=== PATIENT | female | born 1950 | race American Indian/Alaskan Native ===

== ENCOUNTER 2017-02-12 23:52 | Emergency (ER) | payer MEDICARE ==
[2017-02-13 04:34] VITALS: BP 159/91
[2017-02-13] MEDS ORDERED: ROBITUSSIN AC PO ONE (05:36)
[2017-02-13] MEDS ORDERED: MUCINEX ER PO ONE (05:36)
--- NOTE | 2017-02-13 05:50 | Emergency Department Report ---
HPI - General Chief Complaint: Upper Respiratory Infection Time Seen by Provider: 02/13/17 05:20 - HPI HPI: Patient is a 66-year-old female who presents to ED complaining of persistent intermittent cough throughout the day. Patient describes cough as dry nonproductive causing her some discomfort. Patient states she was given Tessalon Perles to take 3 times a day by her primary care on 01/28/2017. Patient states the medication was not working so she stopped taking it. Patient states cough and is not resolved. She denies fevers/chills/assessment vomiting/abdominal pain/chest pain/dizziness /headache/blurry vision. ED Past Medical Hx - Past Medical History Hx Hypertension: Yes Hx Congestive Heart Failure: No Hx Diabetes: Yes Hx Renal Disease: Yes Hx Kidney Stones: Yes Hx Asthma: No Hx COPD: No Additional medical history: Back pain - Surgical History Past Surgical History?: Yes Additional Surgical History: hysterectomy - Social History Smoking Status: Never Smoker Substance Use Type: None - Medications Home Medications: Home Medications Medication Instructions Recorded Confirmed Last Taken Type Amlodipine Besylate/Benazepril 1 cap PO DAILY 01/30/14 05/06/16 05/06/16 History [amLODIPine-Benazepril 10/40 mg] Insulin Glargine,Hum.rec.anlog 60 unit SQ QHS 01/30/14 05/06/16 05/05/16 History [Lantus] Allopurinol [Zyloprim] 100 mg PO QDAY 05/06/16 05/06/16 05/06/16 History AtorvaSTATin [Lipitor] 20 mg PO QPM 05/06/16 05/06/16 05/06/16 History Benzonatate [Tessalon Perles] 100 mg PO Q8HR 05/06/16 05/06/16 05/06/16 History Carvedilol [Coreg] 6.25 mg PO BID 05/06/16 05/06/16 05/06/16 History Cholecalciferol Vit D3 [Vitamin D3] 1,000 unit PO QDAY 05/06/16 05/06/16 History Glimepiride [Amaryl] 2 mg PO QAM 05/06/16 05/06/16 05/06/16 History Hydroxychloroquine [Plaquenil] 200 mg PO QDAY 05/06/16 05/06/1605/06/16 History Leflunomide 10 mg PO DAILY 05/06/16 05/06/16 05/06/16 History Cephalexin [Keflex] 500 mg PO Q6HR #30 capsule 05/07/16 Unknown Rx Cyclobenzaprine HCl [Flexeril 5 MG 5 mg PO Q8HR PRN #12 tab 05/07/16 Unknown Rx TAB] ALBUTEROL Inhaler [ProAir HFA 2 puff IH QID PRN #1 pump 02/13/17 Unknown Rx Inhaler] Azithromycin [Zithromax] 250 mg PO DAILY #6 tablet 02/13/17 Unknown Rx guaiFENesin [Mucinex] 600 mg PO BID #10 tab.er.12h 02/13/17 Unknown Rx ED Review of Systems ROS: Stated complaint: COLD SYMPTOMS Other details as noted in HPI Constitutional: denies: chills, fever Eyes: denies: eye pain, eye discharge, vision change ENT: denies: ear pain, throat pain Respiratory: denies: cough, shortness of breath, wheezing Cardiovascular: denies: chest pain, palpitations Endocrine: no symptoms reported Gastrointestinal: denies: abdominal pain, nausea, diarrhea Genitourinary: denies: urgency, dysuria, discharge Musculoskeletal: denies: back pain, joint swelling, arthralgia Skin: denies: rash, lesions Neurological: denies: headache, weakness, paresthesias Psychiatric: denies: anxiety, depression Hematological/Lymphatic: denies: easy bleeding, easy bruising Physical Exam - Physical Exam Vital Signs: Vital Signs 02/13/17 02/13/17 02/13/17 01:02 01:12 04:25 Temperature 98.4 F 98.4 F 97.8 F Pulse Rate 86 86 82 Respiratory 18 18 Rate Blood Pressure 146/73 Blood Pressure 146/73 159/91 [Right] O2 Sat by Pulse 97 100 97 Oximetry Physical Exam: GENERAL: Alert and oriented x3, no apparent distress, Normal Gait, atraumatic. HEAD: Head is normocephalic and a-traumatic. EYES: Extra ocular muscles are intact. Pupils are equal, round, and reactive to light and accommodation. EARS: symetrical, atraumatic, non tender, ear canal clear and moderate cerumen, tympanic membrance non inflamed. gross auditory nml bilaterally. NOSE: Nose symetrical, Nontender,Nares appeared normal. MOUTH:Mouth is well hydrated and without lesions. Tonsils nonerythematous or swollen, Uvula midline, Tongue not elevated. Mucous membranes are moist. Posterior pharynx clear, no exudate or lesions. Patent airways. NECK: Supple. Non edematous, No carotid bruits. No lymphadenopathy or thyromegaly. LUNGS: Symetrical with respiration, No wheezing, no rales or crackles, CTAB. HEART: S1, S2 present, regular rate and rhythm without murmur, no rubs, no gallops. ABDOMEN: No organomegaly was noted,Positive bowel sounds, soft, and non- distended. . Nontender to palpation on all Quadrants, NO CVA tenderness. EXTREMITIES/MUSCULOSKELETAL: No cyanosis, clubbing, rash, lesions or edema. Full ROM bilaterally. UE/LE Pulses 2+ bilaterally. LE and UE 5+ strength bilaterally NEUROLOGIC: No focal Deficit, Cranial nerves II through XII are grossly intact. No loss of sensation, PSYCHIATRIC: Mood is congruent with affect, denies suicidal or homicidal ideations. SKIN: Warm and dry, No lesions, No ulceration or induration present. ED Course Vital Signs 02/13/17 02/13/17 02/13/17 01:02 01:12 04:25 Temperature 98.4 F 98.4 F 97.8 F Pulse Rate 86 86 82 Respiratory 18 18 Rate Blood Pressure 146/73 Blood Pressure 146/73 159/91 [Right] O2 Sat by Pulse 97 100 97 Oximetry ED Medical Decision Making - Radiology Data Radiology results: report reviewed, image reviewed FINAL REPORT EXAM: XR CHEST ROUTINE 2V HISTORY: cough TECHNIQUE: PA and lateral views of the chest PRIORS: None. FINDINGS: Lines, tubes, and devices: N/A Lungs and pleura: Trachea is normal in position. Mild bibasilar hazy infiltrates are seen posteriorly suspicious for atelectasis or early infiltrate. There is no evidence for pleural effusion, vascular congestion, or pneumothorax. Cardiomediastinal silhouette: Cardiac and mediastinal silhouettes are unremarkable. Other: Bony structures are intact. IMPRESSION: Mild bibasilar posterior hazy infiltrates suggesting atelectasis or early infiltrate. Transcribed By: [facility] Dictated By: TRACI SOLIMAN MD Electronically Authenticated By: TRACI SOLIMAN MD Signed Date/Time: 02/13/17 0555 - Medical Decision Making 66-year-old female presents with bronchitis. ED course: Patient received 1 tablet of Mucinex, 500 mg of azithromycin and Robitussin codeine. Chest x-ray ordered. Chest x-ray shows mild atelectasis/early infiltrate- see above Discussed findings with patient Discussed the patient bronchitis and lasts about 2-4 weeks. Discussed admission to follow-up primary care doctor. Discussed with patient if symptoms worsen to return to ED. Discussed with patient home medication of albuterol decongestant. Freddie. Discussed the patient to take medication as prescribed. Patient verbally states she understands and will comply to follow-up. Discussed the patient to take blood pressure medication daily and as prescribed. Patient is in no acute or respiratory distress. Critical care attestation.: If time is entered above; I have spent that time in minutes in the direct care of this critically ill patient, excluding procedure time. ED Disposition Clinical Impression: Bronchitis Disposition: DISCHARGED TO HOME OR SELFCARE Is pt being admited?: No Does the pt Need Aspirin: No Condition: Stable Instructions: Chronic Bronchitis (ED), Acute Bronchitis (ED) Prescriptions: ALBUTEROL Inhaler [ProAir HFA Inhaler] 2 puff IH QID PRN #1 pump PRN Reason: Shortness Of Breath Azithromycin [Zithromax] 250 mg PO DAILY #6 tablet guaiFENesin [Mucinex] 600 mg PO BID #10 tab.er.12h Referrals: KENDELL WALKER MD [Primary Care Provider] - 3-5 Days VINCE LUNA MD [Referring] - 3-5 Days RISA ESPINOZA MD [Referring] - 3-5 Days Forms: Work/School Release Form(ED) Time of Disposition: 06:14
--- NOTE | 2017-02-13 05:57 | XRay Report ---
FINAL REPORT EXAM: XR CHEST ROUTINE 2V HISTORY: cough TECHNIQUE: PA and lateral views of the chest PRIORS: None. FINDINGS: Lines, tubes, and devices: N/A Lungs and pleura: Trachea is normal in position. Mild bibasilar hazy infiltrates are seen posteriorly suspicious for atelectasis or early infiltrate. There is no evidence for pleural effusion, vascular congestion, or pneumothorax. Cardiomediastinal silhouette: Cardiac and mediastinal silhouettes are unremarkable. Other: Bony structures are intact. IMPRESSION: Mild bibasilar posterior hazy infiltrates suggesting atelectasis or early infiltrate.
[2017-02-13] MEDS ORDERED: ZITHROMAX PO ONE (06:19)
== END 2017-02-13 06:32 | disposition home or self-care (01) ==
LOC: ED 23:52
DX: J40 Bronchitis, not specified as acute or chronic (principal); I10 Essential (primary) hypertension; E11.9 Type 2 diabetes mellitus without complications; Z79.4 Long term (current) use of insulin
CPT/HCPCS: 71020; 82962

== ENCOUNTER 2017-10-22 09:13 | Emergency (ER) | payer MEDICARE ==
[2017-10-22 09:31] VITALS: BP 163/79
[2017-10-22] MEDS ORDERED: ULTRAM PO ONE (10:11)
--- NOTE | 2017-10-22 10:13 | Emergency Department Report ---
ED Lower Extremity HPI - General Chief Complaint: Fall Stated Complaint: LEFT ANKLE PAIN Time Seen by Provider: 10/22/17 09:39 Source: patient, family Mode of arrival: Wheelchair Limitations: No Limitations - History of Present Illness MD Complaint: ankle injury -: Sudden Injury: Ankle: Left Type of Injury: eversion Place: home Severity: moderate Improves With: nothing Worsens With: weight bearing Context: fall - Related Data Home Medications Medication Instructions Recorded Confirmed Last Taken Amlodipine Besylate/Benazepril 1 cap PO DAILY 01/30/14 05/06/16 05/06/16 [amLODIPine-Benazepril 10/40 mg] Insulin Glargine,Hum.rec.anlog 60 unit SQ QHS 01/30/14 05/06/16 05/05/16 [Lantus] Allopurinol [Zyloprim] 100 mg PO QDAY 05/06/16 05/06/16 05/06/16 AtorvaSTATin [Lipitor] 20 mg PO QPM 05/06/16 05/06/16 05/06/16 Carvedilol [Coreg] 6.25 mg PO BID 05/06/16 05/06/16 05/06/16 Glimepiride [Amaryl] 2 mg PO QAM 05/06/16 05/06/16 05/06/16 Previous Rx's Medication Instructions Recorded Last Taken Type traMADol [Ultram] 50 mg PO Q6HR PRN #12 tablet 10/22/17 Unknown Rx Allergies Allergy/AdvReac Type Severity Reaction Status Date / Time acetaminophen [From Tylenol] Allergy Unknown Verified 01/30/14 13:02 aspirin Allergy Unknown Verified 01/30/14 13:02 ED Review of Systems ROS: Stated complaint: LEFT ANKLE PAIN Other details as noted in HPI Comment: All other systems reviewed and negative Musculoskeletal: other (L ANKLE PAIN AND SWELLING) ED Past Medical Hx - Past Medical History Hx Hypertension: Yes Hx Congestive Heart Failure: No Hx Diabetes: Yes Hx Renal Disease: Yes Hx Kidney Stones: Yes Hx Asthma: No Hx COPD: No Additional medical history: Back pain - Surgical History Additional Surgical History: hysterectomy - Social History Smoking Status: Current Some Day Smoker Substance Use Type: Alcohol - Medications Home Medications: Home Medications Medication Instructions Recorded Confirmed Last Taken Type Amlodipine Besylate/Benazepril 1 cap PO DAILY 01/30/14 05/06/16 05/06/16 History [amLODIPine-Benazepril 10/40 mg] Insulin Glargine,Hum.rec.anlog 60 unit SQ QHS 01/30/14 05/06/16 05/05/16 History [Lantus] Allopurinol [Zyloprim] 100 mg PO QDAY 05/06/16 05/06/16 05/06/16 History AtorvaSTATin [Lipitor] 20 mg PO QPM 05/06/16 05/06/16 05/06/16 History Carvedilol [Coreg] 6.25 mg PO BID 05/06/16 05/06/16 05/06/16 History Glimepiride [Amaryl] 2 mg PO QAM 05/06/16 05/06/16 05/06/16 History traMADol [Ultram] 50 mg PO Q6HR PRN #12 tablet 10/22/17 Unknown Rx ED Physical Exam - General Limitations: No Limitations General appearance: alert - Head Head exam: Present: atraumatic - Eye Eye exam: Present: normal appearance, PERRL - ENT ENT exam: Present: mucous membranes moist - Neck Neck exam: Present: normal inspection - Respiratory Respiratory exam: Present: normal lung sounds bilaterally. Absent: respiratory distress, wheezes - Cardiovascular Cardiovascular Exam: Present: regular rate, normal rhythm (90) - GI/Abdominal GI/Abdominal exam: Present: soft, normal bowel sounds - Rectal Rectal exam: Present: deferred - Extremities Exam Extremities exam: Present: normal capillary refill, other (L ANKLE SWELLING. GOOD DP/PT. RAPID CAP REFILL. PAIN W MOVMENT. NO POINT TENDERNSS. SWELLING LATERAL. THIS WAS MECHANICAL FALL YEST WITNESSED BY FAM. NO LOC. ) - Back Exam Back exam: Present: normal inspection - Neurological Exam Neurological exam: Present: alert, oriented X3, CN II-XII intact - Psychiatric Psychiatric exam: Present: normal affect, normal mood - Skin Skin exam: Present: warm, dry, intact, other (SWELLING L ANKLE) ED Course Vital Signs 10/22/17 09:26 Temperature 98.6 F Pulse Rate 95 H Respiratory 16 Rate Blood Pressure 163/79 O2 Sat by Pulse 97 Oximetry - Reevaluation(s) Reevaluation #1: 10/22/17 10:25 ICE MEDICATED FOR PAIN XRAY NOTED POOR CRUTCH CANDIDATE DISCUSSED FOLLOW UP WITH FAMILY ALLERGY TO ASA AND TYLENOL- ? WHAT IT DOES TO HER. dc home w family and dc poc given pt's pain will splint/ and immob as best we can given age and body habitus rx for walker provided will follow up ortho next week. ED Lower Extremity MDM - Radiology Data Radiology results: report reviewed, image reviewed - Medical Decision Making SEE NOTE - Differential Diagnosis RO FX Critical care attestation.: If time is entered above; I have spent that time in minutes in the direct care of this critically ill patient, excluding procedure time. ED Disposition Clinical Impression: Ankle sprain, Fracture Disposition: DC-01 TO HOME OR SELFCARE Is pt being admited?: No Does the pt Need Aspirin: No Condition: Stable Instructions: Ankle Sprain (ED) Additional Instructions: ICE REST ELEVATE /ORTHO SHOE FOLLOW UP ORTHO FOR REPEAT EXAM AND EVAL OF SOFT TISSUE ULTRAM FOR PAIN WALKER TO HELP KEEP WEIGHT OFF IT. Prescriptions: traMADol [Ultram] 50 mg PO Q6HR PRN #12 tablet PRN Reason: Pain Referrals: PRIMARY CAREMD [Referring] - 3-5 Days REKHA CELESTIN MD [Staff Physician] - 3-5 Days Time of Disposition: 10:24
--- NOTE | 2017-10-22 11:00 | XRay Report ---
Left ankle: Trauma, pain. There is generalized swelling from the lower leg into the mid foot mostly on the dorsal aspect. No obvious joint effusion. AP view that includes the midfoot raises suspicion of possible fracture at the base of the fifth metatarsal. Impression: Diffuse swelling. Suspicion of possible fifth metatarsal fracture.
== END 2017-10-22 11:10 | disposition home or self-care (01) ==
LOC: ED 09:13
DX: S93.402A Sprain of unspecified ligament of left ankle, initial encounter (principal); W19.XXXA Unspecified fall, initial encounter; Y93.9 Activity, unspecified; Y99.9 Unspecified external cause status; Y92.89 Other specified places as the place of occurrence of the external cause
CPT/HCPCS: 99284

== ENCOUNTER 2017-12-31 12:26 | Emergency (ER) | payer MEDICARE ==
[2017-12-31 12:35] VITALS: BP 199/98
--- NOTE | 2017-12-31 14:05 | Emergency Department Report ---
ED Fall HPI - General Chief Complaint: Fall Stated Complaint: FALL/RIGHT KNEE PAIN Time Seen by Provider: 12/31/17 14:00 Source: patient Mode of arrival: Ambulatory - History of Present Illness Initial Comments: 67 yo female who is new to the area presents 2 days after fall from porch steps. She has abrasion on right knee and "hurts all over." She desires refill of tramadol. She was using tramadol for previous LLE injury. Denies neck and back pain. Denies head trauma or LOC - Related Data Home Medications Medication Instructions Recorded Confirmed Last Taken Amlodipine Besylate/Benazepril 1 cap PO DAILY 01/30/14 05/06/16 05/06/16 [amLODIPine-Benazepril 10/40 mg] Insulin Glargine,Hum.rec.anlog 60 unit SQ QHS 01/30/14 05/06/16 05/05/16 [Lantus] Allopurinol [Zyloprim] 100 mg PO QDAY 05/06/16 05/06/16 05/06/16 AtorvaSTATin [Lipitor] 20 mg PO QPM 05/06/16 05/06/16 05/06/16 Carvedilol [Coreg] 6.25 mg PO BID 05/06/16 05/06/16 05/06/16 Glimepiride [Amaryl] 2 mg PO QAM 05/06/16 05/06/16 05/06/16 Previous Rx's Medication Instructions Recorded Last Taken Type traMADol [Ultram] 50 mg PO Q6HR PRN #12 tablet 10/22/17 Unknown Rx traMADol [Ultram 50 MG tab] 50 mg PO Q6HR PRN #16 tablet 12/31/17 Unknown Rx Allergies Allergy/AdvReac Type Severity Reaction Status Date / Time acetaminophen [From Tylenol] Allergy Unknown Verified 01/30/14 13:02 aspirin Allergy Unknown Verified 01/30/14 13:02 ED Review of Systems ROS: Stated complaint: FALL/RIGHT KNEE PAIN Other details as noted in HPI Comment: All other systems reviewed and negative ENT: denies: throat pain Respiratory: denies: cough Cardiovascular: denies: chest pain ED Past Medical Hx - Past Medical History Hx Hypertension: Yes Hx Congestive Heart Failure: No Hx Diabetes: Yes Hx Renal Disease: Yes Hx Kidney Stones: Yes Hx Asthma: No Hx COPD: No Additional medical history: Back pain - Surgical History Additional Surgical History: hysterectomy - Social History Smoking Status: Never Smoker Substance Use Type: None - Medications Home Medications: Home Medications Medication Instructions Recorded Confirmed Last Taken Type Amlodipine Besylate/Benazepril 1 cap PO DAILY 01/30/14 05/06/16 05/06/16 History [amLODIPine-Benazepril 10/40 mg] Insulin Glargine,Hum.rec.anlog 60 unit SQ QHS 01/30/14 05/06/16 05/05/16 History [Lantus] Allopurinol [Zyloprim] 100 mg PO QDAY 05/06/16 05/06/16 05/06/16 History AtorvaSTATin [Lipitor] 20 mg PO QPM 05/06/16 05/06/16 05/06/16 History Carvedilol [Coreg] 6.25 mg PO BID 05/06/16 05/06/16 05/06/16 History Glimepiride [Amaryl] 2 mg PO QAM 05/06/16 05/06/16 05/06/16 History traMADol [Ultram] 50 mg PO Q6HR PRN #12 tablet 10/22/17 Unknown Rx traMADol [Ultram 50 MG tab] 50 mg PO Q6HR PRN #16 tablet 12/31/17 Unknown Rx ED Physical Exam - General Limitations: No Limitations General appearance: alert, in no apparent distress - Head Head exam: Present: atraumatic, normocephalic - Eye Eye exam: Present: normal appearance - ENT ENT exam: Present: mucous membranes moist - Neck Neck exam: Present: normal inspection - Respiratory Respiratory exam: Present: normal lung sounds bilaterally. Absent: respiratory distress, wheezes, rales, rhonchi - Cardiovascular Cardiovascular Exam: Present: regular rate, normal rhythm. Absent: systolic murmur, diastolic murmur, rubs, gallop - GI/Abdominal GI/Abdominal exam: Present: soft. Absent: distended, tenderness, guarding, rebound - Extremities Exam Extremities exam: Present: normal inspection, full ROM, other (right amezquita superficial 4 cm abrasion at the amezquita). Absent: tenderness - Back Exam Back exam: Present: normal inspection - Neurological Exam Neurological exam: Present: alert, oriented X3 - Psychiatric Psychiatric exam: Present: normal affect, normal mood - Skin Skin exam: Present: warm, dry, intact, normal color. Absent: rash ED Course Vital Signs 12/31/17 12:30 Temperature 98.2 F Pulse Rate 82 Respiratory 18 Rate Blood Pressure 199/98 O2 Sat by Pulse 98 Oximetry ED Medical Decision Making - Medical Decision Making Ms. Rhodes presents 2 days s/p fall from porch steps two days ago. She has diffuse pain without severe injury. She has knee abrasion. Rx: tramadol 16 tabs Critical care attestation.: If time is entered above; I have spent that time in minutes in the direct care of this critically ill patient, excluding procedure time. ED Disposition Clinical Impression: Fall, Abrasion of knee, right Disposition: DC-01 TO HOME OR SELFCARE Is pt being admited?: No Does the pt Need Aspirin: No Condition: Stable Instructions: Fall Prevention (ED) Prescriptions: traMADol [Ultram 50 MG tab] 50 mg PO Q6HR PRN #16 tablet PRN Reason: Pain Referrals: PRIMARY CARE, [Primary Care Provider] - 3-5 Days
== END 2017-12-31 14:29 | disposition home or self-care (01) ==
LOC: ED 12:26
DX: S80.211A Abrasion, right knee, initial encounter (principal); I10 Essential (primary) hypertension; E11.9 Type 2 diabetes mellitus without complications; W18.30XA Fall on same level, unspecified, initial encounter; Y93.89 Activity, other specified; Y92.89 Other specified places as the place of occurrence of the external cause; Y99.8 Other external cause status
CPT/HCPCS: 99282